=== PATIENT | female | born 1970 | race Caucasian/White ===

== ENCOUNTER 2016-05-07 11:35 | Emergency (ER) | payer BC ==
[2016-05-07] MEDS ORDERED: methylPREDNISolone Sod Succ/PF 125 MG/2 ML VIAL ONE (12:17)
[2016-05-07] MEDS ORDERED: Clindamycin/D5W 600 mg/50 ml Premix Bag ONE (12:17)
[2016-05-07] MEDS ORDERED: Ondansetron HCl/PF 4 MG/2 ML Vial ONE (12:25)
--- NOTE | 2016-05-07 13:58 | ERRECORD ---
[facility] EMERGENCY RECORD HPI RASH (12:11 RW) CHIEF COMPLAINT: Patient presents for evaluation of allergic reaction, Patient presents for evaluation of pruritis, Patient presents for evaluation of rash. HISTORIAN: History provided by patient, seen here a week ago for same; now c/o "spreading, burning". Pt very anxious. LOCATION: Symptoms are generalized. QUALITY: Rash described as itchy, Rash described as red, Described as similar to previous episodes. SEVERITY: Maximum severity of symptoms mild, Currently symptoms are mild, Maximum severity of pain rated as 5/10, Current severity of pain rated as 5/10. TIME COURSE: Patient unable to describe onset of symptoms, There has been no change in the patient's symptoms over time. ASSOCIATED WITH: No associated symptoms. EXACERBATED BY: Patient's condition exacerbated by scratching. RELIEVED BY: Patient's condition relieved by prescription medications. ROS (12:13 [facility]) CONSTITUTIONAL: Negative constitutional review of systems. EYES: Negative eye review of systems. ENT: Negative ears, nose, throat review of systems. CARDIOVASCULAR: Negative cardiovascular review of systems. RESPIRATORY: Negative respiratory review of systems. GI: Negative gastrointestinal review of systems. GENITOURINARY FEMALE: Negative genitourinary review of systems. MUSCULOSKELETAL: Negative musculoskeletal review of systems. SKIN: Historian reports pruritis, reports rash. NEUROLOGIC: Negative neurologic review of systems. ENDOCRINE: Negative endocrine review of systems. HEMO/LYMPHATIC: Normal hematologic/lymphatic system review. ALLERGIC/IMMUNOLOGIC: Normal allergy/immunologic system review. PSYCHIATRIC: Historian reports anxiety, reports depression. NOTES: All systems reviewed, negative except as described above. PAST MEDICAL HISTORY (11:59 [facility]) MEDICAL HISTORY: Notes: PSORIASIS, Flu vaccine not up to date, Tetanus immunization up to date, Pneumococcal vaccine not up to date, Past medical history includes pulmonary disease, asthma. FEMALE SURGICAL HISTORY: RIGHT KNEE SX, Surgical history of hysterectomy. PSYCHIATRIC HISTORY: Psychiatric history includes, anxiety, depression, Notes: ATTEMTPED [facility] CONTACT YESTERDAY FOR ANXIETY AND DEPRESSION, DOESNT TAKE ANY MEDICATIONS FOR IT. SOCIAL HISTORY: Patient drinks socially, every week, Patient currently uses drugs, abuses methamphetamines, Infrequent drug use, Last used: 04/28/2016, Patient has no smoking history, &a-1R&a+25V*p+0X*[id number]*c202B*c15G*c2P*p-0X&a-25V&a+1R Name: Shorty Capps : 1970 F45 MedRec: [id number] AcctNum: [id number] Prepared: TueMay 07, 2016 16:17 by Interface Page 1 of 3 pMD [facility] EMERGENCY RECORD Lives at home, with family. KNOWN ALLERGIES Keflex: Reaction: Anaphylaxis, Severity: Severe, Source: Patient CURRENT MEDICATIONS triamcinolone acetonide: CREAM (GRAM) : Strength - 0.1 % : TOPICAL Patient Dose: 1 lorne Transdermal 2 times a day. (11:56 CJEF) Benadryl: CAPSULE : Strength - 25 mg : ORAL Patient Dose: 50 mg Oral every 4 hours prn. (11:57 CJEF) mupirocin: OINTMENT (GRAM) : Strength - 2 % : TOPICAL Patient Dose: 1 lorne Transdermal 3 times a day. (11:58 CJEF) Bactrim DS: TABLET : Strength - 800 mg-160 mg : ORAL Patient Dose: Unknown. (11:58 CJEF) VITAL SIGNS VITAL SIGNS: BP: 106/58, Pulse: 59, Resp: 18, Temp: 98.4 (Oral), Pain: 5 (Burning), O2 sat: 97 on Room Air, Time: 05/07/2016 11:50. (11:50 CJEF) BP: 91/52, Pulse: 63, Resp: 18, Pain: 5, O2 sat: 97 on Room Air, Time: 05/07/2016 13:03. (13:03 CJEF) BP: 118/60, Pulse: 56, Resp: 18, Temp: 98.5 (Oral), Pain: 5, O2 sat: 97 on Room Air, Time: 05/07/2016 13:48. (13:48 CJEF) PHYSICAL EXAM (12:14 [facility]) CONSTITUTIONAL: Vital signs reviewed, Blood pressure, hypotensive. HEAD: Head exam normal. EYES: Eye exam normal. ENT: ENT exam normal. NECK: Neck exam normal. RESPIRATORY CHEST: Respiratory and chest exam normal. CARDIOVASCULAR: Cardiovascular assessment normal. ABDOMEN FEMALE: Abdominal exam normal. BACK: Back exam normal. UPPER EXTREMITY: Upper extremity exam normal. LOWER EXTREMITY: Lower extremity exam normal. NEURO: Neuro exam normal. SKIN: Rash present, c/w excoriated allergic reaction, secondary cellulitis. LYMPHATIC: Lymphatic exam normal. PSYCHIATRIC: Psychiatric exam included findings of patient oriented to person place and time, Affect, anxious. MEDICATION ADMINISTRATION SUMMARY &a-1R&a+25V*p+0X*[id number]*c202B*c15G*c2P*p-0X&a-25V&a+1R Name: Shorty Capps : 1970 F45 MedRec: [id number] AcctNum: [id number] Prepared: TueMay 07, 2016 16:17 by Interface Page 2 of 3 pMD [facility] EMERGENCY RECORD Drug Name: *Zofran intravenous, Dose Ordered: 8 mg, Route: IV Push, Status: Given, Time: 12:29 05/07/2016, Drug Name: clindamycin intravenous, Dose Ordered: 600 mg, Route: IV Piggy Back, Status: Given, Time: 12:28 05/07/2016, Drug Name: methylPREDNISolone sodium succ injection, Dose Ordered: 125 mg, Route: IV Push, Status: Given, Time: 12:24 05/07/2016, Drug Name: diphenhydrAMINE injection, Dose Ordered: 25 mg, Route: IV Push, Status: Held, Time: 12:23 05/07/2016, *Additional information available in notes, Detailed record available in Medication Service section. PROBLEM LIST No recorded problems DIAGNOSIS (: RW) FINAL: PRIMARY: CELLULITIS UNSPECIFIED, ADDITIONAL: Allergic reaction. PRESCRIPTION predniSONE oral: TABLET : 20 mg : ORAL : Quantity: 3 Unit: tab(s) Route: ORAL Schedule: once a day (in the morning) Dispense: 15 Unit: tab(s) May substitute. Refills: No Refills . (12:08 [facility]) NOTES: No Refills. (12:08 [facility]) clindamycin HCl: CAPSULE : 300 mg : ORAL : Quantity: 1 Unit: cap(s) Route: ORAL Schedule: 3 times a day Dispense: 21 Unit: cap(s) May substitute. Refills: No Refills . (12:08 [facility]) NOTES: No Refills. (12:08 [facility]) Ultram: TABLET : 50 mg : ORAL : Quantity: 2 Unit: tab(s) Route: ORAL Schedule: every 6 hours PRN Dispense: 20 Unit: tab(s) May substitute. Refills: No Refills . (12:09 RW) NOTES: No Refills. (12:09 RW) DISPOSITION PATIENT: Disposition Type: Discharge, Disposition: *Discharge Home, Disposition Transport: Car, Condition: Improved. (12:10 RW) Patient left the department. (13:49 [facility]) Mclaughlin: EF=AMITA Venegas, Huong [facility]=MD Lloyd, Rusty &a-1R&a+25V*p+0X*[id number]*c202B*c15G*c2P*p-0X&a-25V&a+1R Name: Shorty Capps Mamie : 1970 F45 MedRec: [id number] AcctNum: [id number] Prepared: TueMay 07, 2016 16:17 by Interface Page 3 of 3 pMD MTDD
--- NOTE | 2016-05-07 14:03 | PICIS ---
[facility] EMERGENCY RECORD TRIAGE (11:55 CJEF) TRIAGE NOTES: PT REPORTS THAT SHE WAS HERE FOR PSORIASIS TO FOOT THAT SPREAD TO A RASH AND STARTED TO GO UP HER LEG. PT WAS STARTED ON STEROID PACK. SHE WAS ALSO GIVEN CREAM FOR THE PSORIASIS, WHICH WAS TRIAMCINOLONE. YESTERDAY, THE RASH GOT WORSE AND PT WENT TO PCP WHERE SHE WAS PLACED ON BACTRIM AND OTHER CREAM (MUPIROCIN). PT REPORTS NOW THE RASH IS GOING UP BOTH LEGS, SKIPPING HER STOMACH, AND NOW TO THE CHEST AND NECK. PT REPORTS SWELLING TO THE BILTERAL LEGS AND FEET, WELL NECK AND CHEST. PT REPORTS NAUSEA. PT CALLED PCP TODAY AND THEY TOLD HER TO COME TO ER FOR EVAL. PT REPORTS THAT SHE TOOK BENADRYL THIS MORNING AND HAS BEEN ON BENADRYL FOR A WEEK. (11:55 CJEF) PATIENT: NAME: Shorty Capps, AGE: 45, GENDER: female, : Tue1970, TIME OF GREET: TueMay 07, 2016 11:35, PREFERRED LANGUAGE: Burkinan, ETHNICITY: Not or , ECODE BILLING MAP: [facility], SSN: [id number], Zip Code: [address], KG WEIGHT: 85.73, PHONE: , , , PERSON ID: [id number], PCP: Kaley JON AUBREY. (11:55 CJEF) COMPLAINT: RASH. (11:55 CJEF) ADMISSION: URGENCY: 3 Urgent, ADMISSION SOURCE: Home, TRANSPORT: Walk-in, BED: TRIAGE. (11:55 CJEF) ASSESSMENT: Assessment: RASH AND PSORIASIS. (11:59 CJEF) PAIN: Patient complains of pain described as, burning, itching, Location FEET, LEGS, NECK AND UPPER CHEST. (11:59 CJEF) IMMUNIZATIONS: Flu vaccine not up to date, Tetanus immunization up to date, Pneumococcal vaccine not up to date. (11:59 CJEF) SIRS SCORING: Heart Rate 55-109 (0), Temp range 96.8-101.1 (0), respiratory rate 12-24 (0), Mental Status altered: no (0), Yes, Infection or Suspected Infection. (11:59 CJEF) SIRS NOTIFICATION: Yes, Infection or Suspected Infection. (11:59 CJEF) TRIAGE SCREENING: Patient denies suicidal ideation, Patient denies presence of domestic violence. (11:59 CJEF) LMP: LMP: Hysterectomy. (11:59 CJEF) PROVIDERS: TRIAGE NURSE: Huong Venegas RN. (11:55 CJEF) VITAL SIGNS: BP 106/58, Pulse 59, Resp 18, Temp 98.4, (Oral), Pain 5, (Burning), O2 Sat 97, on Room Air, Time 05/07/2016 11:50. (11:50 CJEF) PREVIOUS VISIT ALLERGIES: Keflex. (11:55 CJEF) Keflex. (11:59 CJEF) KNOWN ALLERGIES Keflex: Reaction: Anaphylaxis, Severity: Severe, Source: Patient CURRENT MEDICATIONS triamcinolone acetonide: CREAM (GRAM) : Strength - 0.1 % : TOPICAL &a-1R&a+25V*p+0X*k3333S*c202B*c15G*c2P*p-0X&a-25V&a+1R Name: Shorty Capps : 1970 F45 MedRec: [id number] AcctNum: [id number] Prepared: TueMay 07, 2016 16:23 by Interface Page 1 of 8 pMD [facility] EMERGENCY RECORD Patient Dose: 1 lorne Transdermal 2 times a day. (11:56 CJEF) Benadryl: CAPSULE : Strength - 25 mg : ORAL Patient Dose: 50 mg Oral every 4 hours prn. (11:57 CJEF) mupirocin: OINTMENT (GRAM) : Strength - 2 % : TOPICAL Patient Dose: 1 lorne Transdermal 3 times a day. (11:58 CJEF) Bactrim DS: TABLET : Strength - 800 mg-160 mg : ORAL Patient Dose: Unknown. (11:58 CJEF) VITAL SIGNS VITAL SIGNS: BP: 106/58, Pulse: 59, Resp: 18, Temp: 98.4 (Oral), Pain: 5 (Burning), O2 sat: 97 on Room Air, Time: 05/07/2016 11:50. (11:50 CJEF) BP: 91/52, Pulse: 63, Resp: 18, Pain: 5, O2 sat: 97 on Room Air, Time: 05/07/2016 13:03. (13:03 CJEF) BP: 118/60, Pulse: 56, Resp: 18, Temp: 98.5 (Oral), Pain: 5, O2 sat: 97 on Room Air, Time: 05/07/2016 13:48. (13:48 CJEF) NURSING ASSESSMENT: SKIN (11:59 CJEF) CONSTITUTIONAL: Complex assessment performed, Patient arrives ambulatory, Gait steady, History obtained from patient, Patient appears, uncomfortable, Patient cooperative, Patient alert, Oriented to person, place and time, Skin warm, Skin dry, Skin normal in color, Mucous membranes pink, Mucous membranes moist, Patient is well-groomed, PT REPORTS THAT SHE WAS HERE FOR PSORIASIS TO FOOT THAT SPREAD TO A RASH AND STARTED TO GO UP HER LEG. PT WAS STARTED ON STEROID PACK. SHE WAS ALSO GIVEN CREAM FOR THE PSORIASIS, WHICH WAS TRIAMCINOLONE. YESTERDAY, THE RASH GOT WORSE AND PT WENT TO PCP WHERE SHE WAS PLACED ON BACTRIM AND OTHER CREAM (MUPIROCIN). PT REPORTS NOW THE RASH IS GOING UP BOTH LEGS, SKIPPING HER STOMACH, AND NOW TO THE CHEST AND NECK. PT REPORTS SWELLING TO THE BILTERAL LEGS AND FEET, WELL NECK AND CHEST. PT REPORTS NAUSEA. PT CALLED PCP TODAY AND THEY TOLD HER TO COME TO ER FOR EVAL. PT REPORTS THAT SHE TOOK BENADRYL THIS MORNING AND HAS BEEN ON BENADRYL FOR A WEEK. PAIN: burning pain, itching pain, BILATERAL LEGS, FEET, NECK AND UPPER CHEST, constant, on a scale 0-10 patient rates pain as 5. SKIN: Skin assessment findings include skin warm, Skin dry, Skin normal in color, Inspection findings include rash, red, itchy, to BILATERAL FEET AND LEGS, NECK AND UPPER CHEST. NOTES: Patient tolerated procedure well. SAFETY: Side rails up, Cart/Stretcher in lowest position, Family at bedside, Call light within reach, Hospital ID band on. NURSING PROCEDURE: SIGNAL MAINTENANCE TECHNICIAN (12:31 CJEF) PATIENT IDENTIFIER: Patient actively involved in identification process, Patient's identity verified by patient stating name, &a-1R&a+25V*p+0X*[id number]*c202B*c15G*c2P*p-0X&a-25V&a+1R Name: Shorty Capps : 1970 F45 MedRec: [id number] AcctNum: [id number] Prepared: TueMay 07, 2016 16:23 by Interface Page 2 of 8 pMD [facility] EMERGENCY RECORD Patient's identity verified by patient stating date. SIGNAL MAINTENANCE TECHNICIAN: Patient placed on non-invasive blood pressure monitor, Patient placed on continuous pulse oximetry, Adult/pediatric oxisensor applied. FOLLOW-UP: After procedure, alarms set and on, After procedure, patient tolerating monitoring. NOTES: Patient tolerated procedure well. SAFETY: Side rails up, Cart/Stretcher in lowest position, Family at bedside, Call light within reach, Hospital ID band on. NURSING PROCEDURE: DISCHARGE NOTE (13:48 CJEF) DISCHARGE: Patient discharged to home, ambulating without assistance, driving self, unaccompanied, Summary of Care printed/ provided, Patient requested and was provided an electronic copy of Discharge Instructions, Transition record given to patient, Discharge instructions given to patient, Simple or moderate discharge teaching performed, Prescriptions given and instructions on side effects given, Medication reconciliation form given, Above person(s) verbalized understanding of discharge instructions and follow-up care, Patient treated and evaluated by physician. BELONGINGS: Belongings remain with patient. NOTES: Patient tolerated procedure well. SAFETY: Side rails up, Cart/Stretcher in lowest position, Family at bedside, Call light within reach, Hospital ID band on. NURSING PROCEDURE: IV PATIENT IDENITIFIER: Patient actively involved in identification process, Patient's identity verified by patient stating name, Patient's identity verified by patient stating date. (12:14 CJEF) IV SITE 1: IV therapy indicated for hydration, IV therapy indicated for medication administration, IV established, to the right antecubital, using an 18 gauge catheter, in two attempts, IV site prepped with chloraprep, Saline lock established, Flushed with normal saline (mls): 10. (12:14 CJEF) FOLLOW-UP SITE 1: After procedure, sterile transparent dressing applied. (12:14 CJEF) After procedure, 2x2 dressing applied, IV discontinued, due to patient being discharged, catheter intact. (13:47 CJEF) NOTES: Patient tolerated procedure well. (12:14 CJEF) SAFETY: Side rails up, Cart/Stretcher in lowest position, Family at bedside, Call light within reach, Hospital ID band on. (12:14 CJEF) NURSING PROCEDURE: NURSE NOTES NURSES NOTES: Patient in no apparent distress, Patient resting quietly, Warm blanket given to patient, Notes: PT RESTING IN BED QUIETLY WITH FAMILY AT BEDSIDE. NO DISTRESS NOTED. (12:30 CJEF) Notes: AFTER STERIOD ADMINISTRATION, PT BECOME SIGNIFICANTLY NAUSEATED AND DR. DESAI NOTIFIED WITH NEW VERBAL ORDER FOR 8MG OF &a-1R&a+25V*p+0X*[id number]*c202B*c15G*c2P*p-0X&a-25V&a+1R Name: Shorty Capps : 1970 F45 MedRec: [id number] AcctNum: [id number] Prepared: TueMay 07, 2016 16:23 by Interface Page 3 of 8 pMD [facility] EMERGENCY RECORD ZOFRAN TO BE ADMINISTERED. AFTER ZOFRAN, PT REPORTS DECREASE IN NAUSEA. (12:29 CJEF) Patient in no apparent distress, Patient resting quietly, Notes: PT RESTING IN BED WITH EYES SHUT. NO DISTRESS NOTED. (13:02 CJEF) Patient assisted to bathroom with steady gait, Patient in no apparent distress, Patient resting quietly. (13:48 CJEF) ORDER DETAILS Order Name: SALINE LOCK, Status: Done, Time: 12:14 05/07/2016, User: [employer], - Ordered for: MD Desai Richard, - Entered by: MD Desai Richard - TueMay 07, 2016 12:04, - Quantity: 1. MEDICATION ADMINISTRATION SUMMARY Drug Name: *Zofran intravenous, Dose Ordered: 8 mg, Route: IV Push, Status: Given, Time: 12:29 05/07/2016, Drug Name: clindamycin intravenous, Dose Ordered: 600 mg, Route: IV Piggy Back, Status: Given, Time: 12:28 05/07/2016, Drug Name: methylPREDNISolone sodium succ injection, Dose Ordered: 125 mg, Route: IV Push, Status: Given, Time: 12:24 05/07/2016, Drug Name: diphenhydrAMINE injection, Dose Ordered: 25 mg, Route: IV Push, Status: Held, Time: 12:23 05/07/2016, *Additional information available in notes, Detailed record available in Medication Service section. MEDICATION SERVICE clindamycin intravenous: Order: clindamycin intravenous (clindamycin phosphate) - Dose: 600 mg : IV Piggy Back Schedule: Now Ordered by: Rusty Desai MD Entered by: Rusty Desai MD TueMay 07, 2016 12:06 Documented as given by: Huong Venegas RN TueMay 07, 2016 12:28 Patient, Medication, Dose, Route and Time verified prior to administration. Amount given: 600mg, IV SITE #1 IVPB or drip, initial infusion, IVPB mixed in: 50ml, via primary tubing, on an IV pump, Awake and alert- acceptable, Connections checked prior to administration, Line traced prior to administration, Catheter placement confirmed via flush prior to administration, IV site without signs or symptoms of infiltration during medication administration, No swelling during administration, No drainage during administration, IV flushed after administration, Correct patient, time, route, dose and medication confirmed prior to administration, Patient advised of actions and side-effects prior to administration, Allergies confirmed and medications reviewed prior to administration, Patient tolerated procedure well, Patient in position of comfort, Side rails up, Cart in lowest position, Family at bedside. &a-1R&a+25V*p+0X*d8914G*c202B*c15G*c2P*p-0X&a-25V&a+1R Name: Shorty Capps : 1970 F45 MedRec: [id number] AcctNum: [id number] Prepared: TueMay 07, 2016 16:23 by Interface Page 4 of 8 pMD [facility] EMERGENCY RECORD : Follow Up : Response assessment performed, No signs or symptoms of allergic reaction noted, Site inspection shows, No swelling at administration site, No drainage at administration site, No bleeding at site, No bruising noted at site, _IV SITE #1:_, Medication infusion discontinued, on TueMay 07, 2016 13:21, 55 minutes, ., Total amount infused: 600MG, IV Line flushed after administration. (13:21 SFRE) diphenhydrAMINE injection: Order: diphenhydrAMINE injection (diphenhydramine HCl) - Dose: 25 mg : IV Push Schedule: Now Ordered by: Rusty Desai MD Entered by: Rusty Desai MD TueMay 07, 2016 12:05 , Held by: Huong Venegas RN TueMay 07, 2016 12:23 Reason: Patient refused:Pt has no one to drive her home. methylPREDNISolone sodium succ injection: Order: methylPREDNISolone sodium succ injection (methylprednisolone sod succ) - Dose: 125 mg : IV Push Schedule: Now Ordered by: Rusty Desai MD Entered by: Rusty Desai MD TueMay 07, 2016 12:05 Documented as given by: Huong Venegas RN TueMay 07, 2016 12:24 Patient, Medication, Dose, Route and Time verified prior to administration. Amount given: 125mg, IV SITE #1 IVP, subsequent different medication, Slowly, Awake and alert- acceptable, Connections checked prior to administration, Line traced prior to administration, Catheter placement confirmed via flush prior to administration, IV site without signs or symptoms of infiltration during medication administration, No swelling during administration, No drainage during administration, IV flushed after administration, Correct patient, time, route, dose and medication confirmed prior to administration, Patient advised of actions and side-effects prior to administration, Allergies confirmed and medications reviewed prior to administration, Patient tolerated procedure well, Patient in position of comfort, Side rails up, Cart in lowest position, Family at bedside. : Follow Up : Response assessment performed, No signs or symptoms of allergic reaction noted, Increased nausea, Advised not to ambulate without assistance, Patient in position of comfort, Side rails up, Cart in lowest position, Family at bedside. (12:32 [facility]) Zofran intravenous: Order: Zofran intravenous (ondansetron HCl) - Dose: 8 mg : IV Push Schedule: Now Notes: Read back and verified, Verbal Order Ordered by: Rusty Desai MD Entered by: Huong Venegas RN TueMay 07, 2016 12:29 Documented as given by: Huong Venegas RN TueMay 07, 2016 12:29 Patient, Medication, Dose, Route and Time verified prior to administration. Amount given: 8 mg, IV SITE #1 IVP, subsequent different medication, &a-1R&a+25V*p+0X*o8607V*c202B*c15G*c2P*p-0X&a-25V&a+1R Name: Shorty Capps Mamie : 1970 F45 MedRec: [id number] AcctNum: [id number] Prepared: TueMay 07, 2016 16:23 by Interface Page 5 of 8 pMD [facility] EMERGENCY RECORD Slowly, Awake and alert- acceptable, Connections checked prior to administration, Line traced prior to administration, Catheter placement confirmed via flush prior to administration, IV site without signs or symptoms of infiltration during medication administration, No swelling during administration, No drainage during administration, IV flushed after administration, Correct patient, time, route, dose and medication confirmed prior to administration, Patient advised of actions and side-effects prior to administration, Allergies confirmed and medications reviewed prior to administration, Patient tolerated procedure well, Patient in position of comfort, Side rails up, Cart in lowest position, Family at bedside. : Follow Up : Response assessment performed, No signs or symptoms of allergic reaction noted, Decreased nausea, Advised not to ambulate without assistance, Patient in position of comfort, Side rails up, Cart in lowest position, Family at bedside. (12:32 CJ) HPI RASH (12:11 RW) CHIEF COMPLAINT: Patient presents for evaluation of allergic reaction, Patient presents for evaluation of pruritis, Patient presents for evaluation of rash. HISTORIAN: History provided by patient, seen here a week ago for same; now c/o "spreading, burning". Pt very anxious. LOCATION: Symptoms are generalized. QUALITY: Rash described as itchy, Rash described as red, Described as similar to previous episodes. SEVERITY: Maximum severity of symptoms mild, Currently symptoms are mild, Maximum severity of pain rated as 5/10, Current severity of pain rated as 5/10. TIME COURSE: Patient unable to describe onset of symptoms, There has been no change in the patient's symptoms over time. ASSOCIATED WITH: No associated symptoms. EXACERBATED BY: Patient's condition exacerbated by scratching. RELIEVED BY: Patient's condition relieved by prescription medications. ROS (12:13 RWAG) CONSTITUTIONAL: Negative constitutional review of systems. EYES: Negative eye review of systems. ENT: Negative ears, nose, throat review of systems. CARDIOVASCULAR: Negative cardiovascular review of systems. RESPIRATORY: Negative respiratory review of systems. GI: Negative gastrointestinal review of systems. GENITOURINARY FEMALE: Negative genitourinary review of systems. MUSCULOSKELETAL: Negative musculoskeletal review of systems. SKIN: Historian reports pruritis, reports rash. NEUROLOGIC: Negative neurologic review of systems. ENDOCRINE: Negative endocrine review of systems. HEMO/LYMPHATIC: Normal hematologic/lymphatic system review. &a-1R&a+25V*p+0X*r2496E*c202B*c15G*c2P*p-0X&a-25V&a+1R Name: Shorty Capps : 1970 F45 MedRec: [id number] AcctNum: [id number] Prepared: TueMay 07, 2016 16:23 by Interface Page 6 of 8 pMD [facility] EMERGENCY RECORD ALLERGIC/IMMUNOLOGIC: Normal allergy/immunologic system review. PSYCHIATRIC: Historian reports anxiety, reports depression. NOTES: All systems reviewed, negative except as described above. PAST MEDICAL HISTORY (11:59 CJ) MEDICAL HISTORY: Notes: PSORIASIS, Flu vaccine not up to date, Tetanus immunization up to date, Pneumococcal vaccine not up to date, Past medical history includes pulmonary disease, asthma. FEMALE SURGICAL HISTORY: RIGHT KNEE SX, Surgical history of hysterectomy. PSYCHIATRIC HISTORY: Psychiatric history includes, anxiety, depression, Notes: ATTEMTPED [facility] CONTACT YESTERDAY FOR ANXIETY AND DEPRESSION, DOESNT TAKE ANY MEDICATIONS FOR IT. SOCIAL HISTORY: Patient drinks socially, every week, Patient currently uses drugs, abuses methamphetamines, Infrequent drug use, Last used: 04/28/2016, Patient has no smoking history, Lives at home, with family. PHYSICAL EXAM (12:14 RW) CONSTITUTIONAL: Vital signs reviewed, Blood pressure, hypotensive. HEAD: Head exam normal. EYES: Eye exam normal. ENT: ENT exam normal. NECK: Neck exam normal. RESPIRATORY CHEST: Respiratory and chest exam normal. CARDIOVASCULAR: Cardiovascular assessment normal. ABDOMEN FEMALE: Abdominal exam normal. BACK: Back exam normal. UPPER EXTREMITY: Upper extremity exam normal. LOWER EXTREMITY: Lower extremity exam normal. NEURO: Neuro exam normal. SKIN: Rash present, c/w excoriated allergic reaction, secondary cellulitis. LYMPHATIC: Lymphatic exam normal. PSYCHIATRIC: Psychiatric exam included findings of patient oriented to person place and time, Affect, anxious. EVENTS TRANSFER: Triage to Emergency Triage. (TueMay 07, 2016 11:55 CJ) Emergency Triage to Main ED -04. (11:58 CJ) Emergency Main ED -04 to -03. (12:43 JPAR) Removed from Emergency Main ED -03. (13:49 CJ) PROBLEM LIST No recorded problems &a-1R&a+25V*p+0X*q2073E*c202B*c15G*c2P*p-0X&a-25V&a+1R Name: Shorty Capps : 1970 F45 MedRec: [id number] AcctNum: [id number] Prepared: TueMay 07, 2016 16:23 by Interface Page 7 of 8 pMD [facility] EMERGENCY RECORD DIAGNOSIS (12:10 RW) FINAL: PRIMARY: CELLULITIS UNSPECIFIED, ADDITIONAL: Allergic reaction. DISPOSITION PATIENT: Disposition Type: Discharge, Disposition: *Discharge Home, Disposition Transport: Car, Condition: Improved. (12:10 RW) Patient left the department. (13:49 [facility]) INSTRUCTION (12:11 [facility]) [facility] [address] [phone]. PRESCRIPTION predniSONE oral: TABLET : 20 mg : ORAL : Quantity: 3 Unit: tab(s) Route: ORAL Schedule: once a day (in the morning) Dispense: 15 Unit: tab(s) May substitute. Refills: No Refills . (12:08 RW) NOTES: No Refills. (12:08 RW) clindamycin HCl: CAPSULE : 300 mg : ORAL : Quantity: 1 Unit: cap(s) Route: ORAL Schedule: 3 times a day Dispense: 21 Unit: cap(s) May substitute. Refills: No Refills . (12:08 RW) NOTES: No Refills. (12:08 RW) Ultram: TABLET : 50 mg : ORAL : Quantity: 2 Unit: tab(s) Route: ORAL Schedule: every 6 hours PRN Dispense: 20 Unit: tab(s) May substitute. Refills: No Refills . (12:09 RW) NOTES: No Refills. (12:09 RW) IMAGING *DISCHARGE INSTRUCTIONS RECEIPT: Image captured from scanner. (14:01 [facility]) *SUPPLY CHARGE SHEET: Image captured from scanner. (14:02 [facility]) ADMIN (16:13 SABINA) DIGITAL SIGNATURE: MD Lloyd, Rusty. Mclaughlin: SPEEDY=AMITA Venegas, Huong SANON=VONNIE Pozo Julia RWAG=MD Lloyd, Rusty SFRE=AMITA Bradley, Dinah &a-1R&a+25V*p+0X*h1366Z*c202B*c15G*c2P*p-0X&a-25V&a+1R Name: Shorty Capps : 1970 F45 MedRec: [id number] AcctNum: [id number] Prepared: TueMay 07, 2016 16:23 by Interface Page 8 of 8 pMD [facility] MEDICATION RECONCILIATION You were seen in the Emergency Department on: TueMay 07, 2016 KNOWN ALLERGIES Keflex: Reaction: Anaphylaxis, Severity: Severe, Source: Patient MEDICATIONS GIVEN WHILE IN THE EMERGENCY DEPARTMENT methylPREDNISolone sodium succ injection (methylprednisolone sod succ) - Dose: 125 milligram(s) : IV Push clindamycin intravenous (clindamycin phosphate) - Dose: 600 milligram(s) : IV Piggy Back Zofran intravenous (ondansetron HCl) - Dose: 8 milligram(s) : IV Push HOME MEDICATIONS CONTINUE PRESCRIBED Bactrim DS : TABLET : Strength - 800 mg-160 mg : ORAL Continue as prescribed Patient had been taking: Dose unknown Benadryl : CAPSULE : Strength - 25 mg : ORAL Continue as prescribed Patient had been takin mg Oral every 4 hours prn. mupirocin : OINTMENT (GRAM) : Strength - 2 % : TOPICAL Continue as prescribed Patient had been takin lorne Transdermal 3 times a day. triamcinolone acetonide : CREAM (GRAM) : Strength - 0.1 % : TOPICAL Continue as prescribed Patient had been takin lorne Transdermal 2 times a day. Notes from the emergency department Reviewed with patient PRESCRIPTIONS (3) Printed (3) predniSONE oral : TABLET : 20 mg : ORAL Quantity: 3, Unit: tab(s), Route: ORAL, Schedule: once a day (in the morning), Dispense: 15 Unit: tab(s) &a-1R&a+25V*p+0X*n5378Z*c202B*c15G*c2P*p-0X&a-25V&a+1R Name: Shorty Capps : 1970 F45 MedRec: [id number] AcctNum: [id number] Prepared: TueMay 07, 2016 16:23 by Interface pMD [facility] MEDICATION RECONCILIATION clindamycin HCl : CAPSULE : 300 mg : ORAL Quantity: 1, Unit: cap(s), Route: ORAL, Schedule: 3 times a day, Dispense: 21 Unit: cap(s) &a-1R&a+25V*p+0X*c3729B*c202B*c15G*c2P*p-0X&a-25V&a+1R Name: Shorty Capps : 1970 F45 MedRec: [id number] AcctNum: [id number] Prepared: TueMay 07, 2016 16:23 by Interface pMD [facility]
== END 2016-05-07 13:49 | disposition home or self-care (01) ==
LOC: MADERS 11:35
DX: L03.90 Cellulitis, unspecified (principal); T78.40XA Allergy, unspecified, initial encounter; J45.909 Unspecified asthma, uncomplicated; F41.9 Anxiety disorder, unspecified; F32.9 Major depressive disorder, single episode, unspecified
CPT/HCPCS: 96365; 96375; J2405; J2930; J3490